=== PATIENT | male | born 1975 | race Two or more races ===

== ENCOUNTER → 2017-03-11 | Outpatient (CLI) | payer BC | END | disposition home or self-care (01) | LOC: PCVCIMAG 15:47 | PROVIDERS: ATTEND Internal Medicine Cardiovascular Disease | DX: I10 Essential (primary) hypertension (principal); R55 Syncope and collapse; E78.00 Pure hypercholesterolemia, unspecified; R07.89 Other chest pain; R06.02 Shortness of breath | CPT/HCPCS: 93005; 93880; G0463 ==

== ENCOUNTER → 2017-03-19 | Outpatient (CLI) | payer BC | END | disposition home or self-care (01) | LOC: PCVCIMAG 11:12 | PROVIDERS: ATTEND Internal Medicine Cardiovascular Disease | DX: R07.9 Chest pain, unspecified (principal); R06.00 Dyspnea, unspecified; R55 Syncope and collapse | CPT/HCPCS: 93325; 93351 ==